=== PATIENT | male | born 1955 | race Caucasian/White ===

== ENCOUNTER 2018-06-03 07:32 | Day surgery (SDC) | payer OTHER ==
--- NOTE | 2018-05-18 20:10 | HP ---
HISTORY AND PHYSICAL: DATE OF PLANNED ADMISSION AND SURGERY: 06/03/18 HISTORY OF PRESENT ILLNESS: Mr. Rios is a 62-year-old white male who is admitted with a tight urethral stricture, partial urinary retention for cystoscopy and internal urethrotomy. Mr. Rios has long history of urethral stricture and in 2001, he was found to be in partial urinary retention caused by a tight bulbar urethral stricture. He underwent an internal urethrotomy. He did very well postoperatively with good bladder emptying. He presented recently to my office with increasing voiding symptoms, mostly slow stream and feeling of incomplete bladder emptying. He also had burning on urination and some whitish urethral discharge. He was worked up in my office and had a bladder ultrasound, which showed an elevated residual of about 400 cc. Cystoscopy showed tight bulbar urethral stricture. His urine culture was positive for Staph epidermidis and he was given a course of doxycycline. Because of the above history and findings, the patient is admitted for the above procedure. PAST MEDICAL HISTORY AND SYSTEM REVIEW: He is in excellent health. He denies any cardiac or pulmonary diseases or symptoms. MEDICATIONS: He is on no chronic medications. ALLERGIES: He denies any allergies to medications. FAMILY HISTORY: Family history is relevant for his father, who had a prostate carcinoma. SOCIAL HISTORY: He is a nonsmoker. PHYSICAL EXAMINATION GENERAL: Pleasant, healthy, and fit-looking white male. VITAL SIGNS: Blood pressure 130/80, pulse of 70. LUNGS: Clear. HEART: Regular and rhythmic. No murmurs. ABDOMEN: Soft. No masses, no tenderness, and no CVA tenderness. RECTAL: Examination showed a slightly enlarged, but nonsuspicious prostate. IMPRESSION: 1. Bladder outlet obstruction with increased postvoid residual secondary to a tight bulbar urethral stricture. 2. Family history of prostate carcinoma with a normal prostate on rectal exam and a normal PSA of 2.1. PLAN: Plan is for cystoscopy and internal urethrotomy. I discussed the above plans in detail with the patient. The patient understands there is a 50% chance of the stricture coming back and if it recurs, he would be a candidate for a urethroplasty. Some of the potential complications of the procedure including urethral bleeding and infection were discussed. All his questions were answered. [id number]/CPS #: [id number] LINDSEY
[~2018-06-03 07:32] MED LIST: Gentamicin ADULT (*) 160 MG in NS 0.9% 100 ML* 100 ML IVPB ONE
[2018-06-03] MEDS ORDERED: Sodium Citrate/Citric Acid* 15 ML UDC ONE (07:55)
[2018-06-03] MEDS ORDERED: fentaNYL* 50 MCG/ML 2 ML VIAL (100 MCG VIAL) IV PRN (09:00)
[2018-06-03] MEDS ORDERED: Ondansetron INJ* 2 MG/ML VIAL IV PRN (09:00)
[2018-06-03] MEDS ORDERED: Naloxone* 0.4 MG/ML 1 ML VIAL IV PRN (09:00)
[2018-06-03] MEDS ORDERED: Ketorolac INJ* 30 MG/ML 1 ML VIAL IV PRN (09:00)
[2018-06-03] MEDS ORDERED: Propofol* 10 MG/ML 20 ML BTL ONE (09:53)
[2018-06-03] MEDS ORDERED: fentaNYL* 50 MCG/ML 2 ML VIAL (100 MCG VIAL) ONE (09:53)
[2018-06-03] MEDS ORDERED: Lidocaine 2% PF * 5 ML VIAL ONE (09:53)
[2018-06-03 11:34] VITALS: BP 151/86
--- NOTE | 2018-06-03 12:27 | OP ---
DATE OF OPERATION: 06/03/18 [facility] DATE OF : 55 SURGEON: Ricky Murillo MD. ANESTHESIOLOGIST: Dr. Donald Fam. ANESTHESIA: General PRE-OP DIAGNOSES: 1. Tight bulbar urethral stricture 2. Bladder outlet obstruction due to above. POST-OP DIAGNOSES: 1. Tight bulbar urethral strictures 2. Bladder outlet obstruction due to above. OPERATIVE PROCEDURE: 1. Direct internal optic urethrotomies 2. Cystoscopy. INDICATIONS FOR PROCEDURE: Mr. Rios is a 62-year-old white male who had a long history of bladder outlet obstruction and urethral stricture. In 2001 he went into urinary retention and underwent an internal urethrotomy. He did very well postoperatively. He stopped his follow-up visits and he presented recently with recurrence of the bladder outlet obstruction and he had a post void residual of 400 cc. He had positive urine culture for Staph epidermidis that was treated. Urethroscopy showed a very tight stricture in the bulbar urethra. Because of the above history and findings patient is brought in for the above procedure. PATHOLOGY: At urethroscopy, there were 2 strictures in the bulbar urethra. The distal one was soft and minimally obstructing. The proximal stricture was very tight and calibrated to less than 5 Frisian; it was dense. It was located about 1 cm distal to the external sphincter. The external sphincter was not involved with the stricture. The prostatic urethra measured about 2.5 cm in length and there was no significant obstruction by prostate enlargement. Examination of the bladder showed moderate diffuse trabeculations. There were no suspicious bladder lesions seen. No calculi or diverticula were noted. DESCRIPTION OF PROCEDURE: After successful general anesthesia, the patient was placed in lithotomy position and was prepped and draped for a cystoscopy. The direct internal optic urethrotome was introduced inside the urethra under direct vision. The pathology in the bulbar urethra was noted. A flexible tip guide wire was then introduced through the strictures and passed inside the bladder. Using the cold knife, the strictures were divided at 12 o'clock. The incision was deepened through the full thickness of the scarring, but avoiding going into the corpus spongiosum. There was no bleeding noted from the incisions. The scope was then introduced without difficulty inspecting the prostatic urethra and inspecting the bladder and the above findings were noted. The urethrotome was then pulled out of the bladder, and additional incisions of the residual stricture fibers was then performed. The cystoscopy was then carried out using a 22 scope and the bladder was carefully inspected and the above findings were noted. After a final inspection which showed intact external sphincter, wide open stricture and no bleeding from the incisions, the scope was removed and a size 20-Frisian Glass catheter was passed inside the bladder and the balloon inflated with 10 cc of water. The patient tolerated the procedure well and left the operating room in good condition. The plan is to keep the Glass in place for the next 4 days. It will be removed in the office. [id number]/CPS #: [id number] MTDD
[2018-06-04] MEDS ORDERED: Sodium Citrate/Citric Acid* 15 ML UDC PO ONE (06:00)
[2018-06-04] MEDS ORDERED: Buffered Lidocaine 0.9% SYRIN* 5 ML/SYR SYRINGE INTRADERM ONE (06:00)
[2018-06-04] MEDS ORDERED: Lactated Ringers 1000 ML Bag* 1,000 ML IV SCH (06:00)
== END 2018-06-03 11:45 | disposition home or self-care (01) ==
LOC: OR 07:32
PROVIDERS: ATTEND Urology
DX: N35.812 Other bulbous urethral stricture, male (principal); N32.0 Bladder-neck obstruction
CPT/HCPCS: A9270-GY; J1580; J2704; J3010